=== PATIENT | female | born 1985 | race Caucasian/White ===

== ENCOUNTER 2024-12-15 20:00 | Emergency (ER) | payer MEDICAID ==
[~2024-12-15] VITALS: Ht 167.6 cm; Wt 104.0 kg
[2024-12-15 20:02] VITALS: BP 127/89; PULSE 99; RESP 16; TEMP 36.8; O2SAT 95; O2SAT 97
[2024-12-15] MEDS: ACETAMINOPHEN 500MG TABLET PO ONE (21:14)
[2024-12-15] MEDS: DIPHENHYDRAMINE 25MG CAPSULE PO ONE (21:14)
[2024-12-15] MEDS: METOCLOPRAMIDE HCL 10MG TABLET PO ONE (21:14)
[2024-12-16] MEDS ORDERED: NAPR-1176 MT (01:44)
== END 2024-12-15 21:15 | disposition left against medical advice (07) ==
LOC: ER 20:00
DX: S01.511A Laceration without foreign body of lip, initial encounter (principal); Z79.899 Other long term (current) drug therapy; Z88.0 Allergy status to penicillin; Y08.89XA Assault by other specified means, initial encounter; Y93.89 Activity, other specified; Y92.89 Other specified places as the place of occurrence of the external cause; Y99.8 Other external cause status
CPT/HCPCS: 99283; 81025; Q0163; J8597; 99282

== ENCOUNTER 2024-12-15 23:35 | Emergency (ER) | payer MEDICAID ==
[~2024-12-15] VITALS: Ht 167.6 cm; Wt 104.0 kg
[2024-12-15 23:43] VITALS: O2SAT 96
[2024-12-16] MEDS ORDERED: NAPR-1176 MT (01:44)
[2024-12-16 02:47] VITALS: BP 121/79; PULSE 90; RESP 18; TEMP 36.7; O2SAT 97
== END 2024-12-16 01:55 | disposition home or self-care (01) ==
LOC: ER 23:35
DX: S02.2XXA Fracture of nasal bones, initial encounter for closed fracture (principal); S09.90XA Unspecified injury of head, initial encounter; Z79.1 Long term (current) use of non-steroidal anti-inflammatories (NSAID); Z88.0 Allergy status to penicillin; Y08.89XA Assault by other specified means, initial encounter; Y93.89 Activity, other specified; Y92.89 Other specified places as the place of occurrence of the external cause; Y99.8 Other external cause status
CPT/HCPCS: 70486; 81025; 99284